=== PATIENT | male | born 1985 | race Two or more races ===

== ENCOUNTER → 2024-07-12 | Outpatient (CLI) | payer BC, SELFPAY ==
[2024-07-12 12:21] LABS: Collection Type, Urine Clean Catch
[2024-07-12 12:47] LABS: Basophils % (Auto) 0 % (0-2.5); Eosinophils # (Auto) 0.1 Thou/mm3 (0.0-0.5); Eosinophils % (Auto) 2 % (0-10); Hemoglobin 19.1 g/dL (13.5-16.0); Immature Granulocytes % (Auto) 0 % (0-0); Immature Granulocytes Auto 0.02 Thou/mm3 (0.00-0.00); Lymphocytes # (Auto) 2.7 Thou/mm3 (1.0-4.8); Lymphocytes % (Auto) 36 % (10-50); Mean Corpuscular HGB Conc 33.5 g/dl (31.0-37.0); Mean Corpuscular Hemoglobin 29.3 pg (25.0-35.0); Mean Corpuscular Volume 88 fL (80-100); Monocytes # (Auto) 0.7 Thou/mm3 (0.0-0.8); Monocytes % (Auto) 9 % (0-12); Neutrophils % (Auto) 53 % (37-80); Nucleated Red Blood Cell % 0 /100 WBC (0); Platelet Count 389 Thou/mm3 (140-440); Red Blood Count 6.51 Miln/mm3 (4.50-5.90); White Blood Count 7.6 Thou/mm3 (3.8-10.6)
[2024-07-12 13:06] LABS: Vitamin D 25 Hydroxy Total 14.2 ng/mL (7.3-40.2)
[2024-07-12 13:08] LABS: Alanine Aminotransferase 106 U/L (10-49); Albumin, Serum 4.9 gm/dL (3.5-5.0); Alkaline Phosphatase 56 U/L (46-116); Anion Gap 6 (7-16); Aspartate Amino Transferase 48 U/L (0-34); BUN/Creatinine Ratio 11 Ratio (12-20); Bilirubin,Total 0.7 mg/dL (0.3-1.2); Blood Urea Nitrogen 11 mg/dL (9-23); Calcium 9.9 mg/dL (8.3-10.6); Calcium (Corrected) 9.9 mg/dL (8.5-10.1); Carbon Dioxide 27.4 mMol/L (20.0-31.0); Cardiac Risk Estimate 9.3 RATIO (4.0-6.7); Chloride 103 mMol/L (98-107); Cholesterol 251 mg/dL (132-200); Globulin 2.5 gm/dL (2.3-3.5); Glucose 86 mg/dL (74-106); HDL Cholesterol 27 mg/dL (40-60); LDL Cholesterol,Calculated 198 mg/dL (0-130); Osmolality,Calculated 270 (275-295); Potassium 4.7 mMol/L (3.4-5.1); Sodium 136 mMol/L (136-145); Thyroid Stimulating Hormone 1.06 uIU/mL (0.55-4.78); Total Protein 7.4 gm/dL (5.7-8.2); Triglycerides 132 mg/dL (30-150); eGFR > 60 See Note
[2024-07-12 13:21] LABS: Bacteria,Urine Rare; Bilirubin,Urine Negative (Negative); Blood,Urine Negative (Negative); Clarity,Urine Clear (Clear/Hazy); Color,Urine Yellow (Lt Yel-Yel); Culture Indicated,Urine Not Indicated; Glucose, Urine Negative (Negative); Ketones,Urine Negative (Negative); Leukocyte Esterase,Urine Negative (Negative); Nitrite,Urine Negative (Negative); Protein,Urine Trace (Neg - Trace); RBC,Urine 5 /hpf (0-3); Specific Gravity,Urine 1.018 (1.001-1.035); Squamous Epithelial Cell,Urine 3 /hpf (0-5); Urobilinogen,Urine Negative mg/dL (0.0-1.0); WBC,Urine 4 /hpf (0-5)
== END | disposition home or self-care (01) ==
LOC: COPL 10:58
PROVIDERS: PCP Family Medicine; Referring Provider Physician Assistant; Visit Provider Physician Assistant
DX: Z00.00 Encounter for general adult medical examination without abnormal findings (principal); E55.9 Vitamin D deficiency, unspecified; E78.5 Hyperlipidemia, unspecified
CPT/HCPCS: 36415; 80053; 80061; 81001; 82306; 84443; 85025

== ENCOUNTER → 2024-10-04 | Outpatient (CLI) | payer BC, SELFPAY ==
[2024-10-04 11:55] LABS: Misc Send Out* See Sep Rpt
[2024-10-04 12:45] LABS: Collection Type, Urine Clean Catch
[2024-10-04 13:21] LABS: Basophils % (Auto) 1 % (0-2.5); Eosinophils # (Auto) 0.2 Thou/mm3 (0.0-0.5); Eosinophils % (Auto) 2 % (0-10); Hematocrit 54.2 % (41.0-53.0); Hemoglobin 18.4 g/dL (13.5-16.0); Immature Granulocytes % (Auto) 0 % (0-0); Immature Granulocytes Auto 0.02 Thou/mm3 (0.00-0.00); Lymphocytes # (Auto) 2.6 Thou/mm3 (1.0-4.8); Lymphocytes % (Auto) 37 % (10-50); Mean Corpuscular HGB Conc 33.9 g/dl (31.0-37.0); Mean Corpuscular Hemoglobin 29.3 pg (25.0-35.0); Mean Corpuscular Volume 86 fL (80-100); Monocytes # (Auto) 0.7 Thou/mm3 (0.0-0.8); Monocytes % (Auto) 9 % (0-12); Neutrophils # (Auto) 3.5 Thou/mm3 (1.8-7.7); Neutrophils % (Auto) 51 % (37-80); Nucleated Red Blood Cell % 0 /100 WBC (0); Platelet Count 380 Thou/mm3 (140-440); RDW Standard Deviation 45.5 fL (35.1-43.9); Red Blood Count 6.27 Miln/mm3 (4.50-5.90)
[2024-10-04 13:26] LABS: INR 1.1 (0.9-1.3); Prothrombin Time 12.4 Seconds (9.0-12.2)
[2024-10-04 13:29] LABS: Alanine Aminotransferase 74 U/L (10-49); Albumin, Serum 4.9 gm/dL (3.5-5.0); Alkaline Phosphatase 51 U/L (46-116); Anion Gap 8 (7-16); Aspartate Amino Transferase 38 U/L (0-34); BUN/Creatinine Ratio 11 Ratio (12-20); Bilirubin,Direct 0.4 mg/dL (0.0-0.3); Blood Urea Nitrogen 10 mg/dL (9-23); Calcium 9.1 mg/dL (8.3-10.6); Calcium (Corrected) 9.1 mg/dL (8.5-10.1); Carbon Dioxide 27.4 mMol/L (20.0-31.0); Chloride 100 mMol/L (98-107); Creatinine (Component) 0.9 mg/dL (0.6-1.3); Globulin 2.5 gm/dL (2.3-3.5); Glucose 80 mg/dL (74-106); Osmolality,Calculated 268 (275-295); Potassium 4.3 mMol/L (3.4-5.1); Sodium 135 mMol/L (136-145); Total Protein 7.4 gm/dL (5.7-8.2); eGFR > 60 See Note
[2024-10-04 13:33] LABS: Amorphous Crystals,Urine Present (Absent); Bilirubin,Urine Negative (Negative); Blood,Urine Negative (Negative); Clarity,Urine Clear (Clear/Hazy); Color,Urine Yellow (Lt Yel-Yel); Culture Indicated,Urine Not Indicated; Glucose, Urine Negative (Negative); Ketones,Urine Negative (Negative); Leukocyte Esterase,Urine Negative (Negative); Nitrite,Urine Negative (Negative); Protein,Urine Negative (Neg - Trace); RBC,Urine 6 /hpf (0-3); Specific Gravity,Urine 1.015 (1.001-1.035); Squamous Epithelial Cell,Urine 2 /hpf (0-5); WBC,Urine 1 /hpf (0-5)
[2024-10-04 14:00] LABS: Ferritin 429 ng/mL (10.5-307.3); Total Iron Binding Capacity 451 mcg/dL (250-425)
[2024-10-04 14:11] LABS: Iron 156 mcg/dL (65-175); Percent Iron Saturation 34 % (20-55); Unsaturated Iron Binding 295 (225-295)
[2024-10-04 14:16] LABS: Hepatitis A Antibody IgM Non Reactive (Non React); Hepatitis B Core Antibody IgM Non Reactive (Non React); Hepatitis B Surface Antigen Non Reactive (Non React); Hepatitis C Antibody Non Reactive (Non React)
[2024-10-04 14:47] LABS: RA Screen Negative (Negative)
[2024-10-10 06:36] LABS: ACTH, Plasma* 57 pg/mL (6-50)
[2024-10-13 22:03] LABS: Sjogren's antibody (SS-A) <1.0 NEG AI (<1.0 NEGATIVE); Sm Antibody <1.0 NEG AI (<1.0 NEGATIVE)
[2024-10-14 06:35] LABS: ANA Screen, IFA NEGATIVE (NEGATIVE); Alpha-1-Antitrypsin* 167 mg/dL (83-199); Sjogren's Antibody (SS-B) <1.0 NEG AI (<1.0 NEGATIVE)
[2024-10-14 06:36] LABS: Actin Antibody (IgG)* <20 U; Ceruloplasmin* 18 mg/dL (14-30); Complement Component C3* 117 mg/dL (82-185); Complement Component C4c* 38 mg/dL (15-53); Copper* 84 mcg/dL (70-175); DNA (ds) Antibody* 1 IU/mL; Gastric Parietal Cell Ab* <20.0 U; Mitochondrial Ab NEGATIVE (NEGATIVE); Myocardial Ab, IF NEGATIVE (NEGATIVE); Scl-70 Antibody* <1.0 NEG AI (<1.0 NEGATIVE); Sm/RNP Antibody <1.0 NEG AI (<1.0 NEGATIVE); Striated Muscle Ab NEGATIVE (NEGATIVE); Thyroid Peroxidase Antibodies* <1 IU/mL (<9)
== END | disposition home or self-care (01) ==
LOC: COPL 11:14
PROVIDERS: PCP Physician Assistant; Referring Provider Specialist; Visit Provider Specialist
DX: R94.5 Abnormal results of liver function studies (principal); E78.5 Hyperlipidemia, unspecified; D58.2 Other hemoglobinopathies; R31.9 Hematuria, unspecified; R76.0 Raised antibody titer
CPT/HCPCS: 36415; 80053; 80074; 80076; 81001; 82024; 82103; 82105; 82390; 82525; 82728; 83516; 83540; 83550; 85025; 85610; 86015; 86038; 86160; 86225; 86231; 86235; 86255; 86376; 86430

== ENCOUNTER 2024-11-22 09:59 | Outpatient (RCR) | payer BC, SELFPAY ==
--- NOTE | 2024-11-22 23:33 | CTCCONSULT_ITS ---
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 Denies any cough chest pain abdominal pain headaches. Patient consumes alcohol on the weekend about 6-7 drinks at a time. Denies any use of testosterone supplement do not smoke snores at times. No family or personal history of cancer OTHER MEDICAL HISTORY/CONDITIONS: [place] CHILD ALLERGIC RHINITIS HIGH CHOLESTEROL DENIES FAMILY HISTORY: Father:?DENIES Mother:?DENIES Sibling:?DENIES Children:?DENIES Cancer?History:?DENIES Patient?denies?family?cancer?history. SOCIAL HISTORY: Occupational?History:?[employer] Education?Level:?Vocational School Graduate Marital?Status:?Single Tobacco?Use:?DENIES ETOH?Use:?SOCIAL?BEER?AND?LIQUOR Drug?Note:?DENIES Social?History?Note:?LIVES?ALONE MEDICATIONS: 1. No medications reported by patient -?[facility] Meds? Medications Last Reconciled by Ria Meade RN on 11/22/2024 ALLERGIES: No Known Drug Allergies REVIEW OF SYSTEMS: A complete 14-point review of systems was performed and is negative except as noted in interval history. PHYSICAL EXAMINATION: VITAL SIGNS: Temperature?98.7, B/P?151/87, Height?74?inches, Oxygen?Saturation?98% Weight?305?lbs PAIN: 0 - No pain ECOG Performance Status: 0 - Asymptomatic and fully active GENERAL APPEARANCE: Appears well, in no apparent distress, appropriately interactive. HEENT: Normocephalic, no temporal wasting, normal conjunctiva, no scleral icterus, normal hearing, lips without lesions, neck normal range of motion. CARDIOVASCULAR: Not assessed. PULMONARY: Normal respiratory effort, no respiratory distress or use of accessory muscles, speaking in full sentences, no tachypnea. EXTREMITIES: No pedal edema or cyanosis. SKIN: Normal skin appearance. NEUROLOGIC: Alert and oriented x4. PSHYCHIATRIC: Appropriate affect, mood normal, behavior normal, intact thought and speech. LABORATORY DATA: I have personally reviewed and interpreted each of the patient?s relevant lab tests, abnormal findings are below: Date 07/12/24 10/04/24 ??WHITE?BLOOD?COUNT?(Thou/mm3) ? 7.0 ??RED?BLOOD?COUNT?(Miln/mm3) ? 6.27?H ??HEMOGLOBIN?(gm/dl) ? 18.4?HH ??HEMATOCRIT?(%) ? 54.2?H ??PLATELET?COUNT?(Thou/mm3) ? 380 ??NEUTROPHILS?%,?AUTO?(%) ? 51 ??LYMPH?%,?AUTO?(%) ? 37 ??NEUTROPHILS,?AUTO?(Thou/mm3) ? 3.5 ??GLUCOSE,RANDOM?(mg/dL) 86 80 ??BLOOD?UREA?NITROGEN?(mg/dL) 11 10 ??CREATININE?(mg/dL) 1.00 0.90 ??SODIUM?(mmol/L) 136 135?L ??POTASSIUM?(mmol/L) 4.7 4.3 ??CHLORIDE?(mmol/L) 103 100 ??CrCl?(CandG)?(ml/min) 148.55 163.41 ??AST/SGOT?(Unit/L) 48?H 38?H ??ALT/SGPT?(Unit/L) 106?H 74?H ??ALKALINE?PHOSPHATASE?(Unit/L) 56 51 ??BILIRUBIN,?TOTAL?(mg/dL) 0.7 1.0 ??PROTEIN?TOTAL?(gm/dl) 7.4 7.4 ??ALBUMIN,?SERUM?(gm/dl) 4.9 4.9 ??GLOBULIN?(gm/dl) 2.5 2.5 ??ALBUMIN/GLOBULIN?RATIO 2.0 2.0 ??CALCIUM,?SERUM?(mg/dL) 9.9 9.1 ??CALCIUM?SERUM?(CORRECTED)?(mg/dL) 9.9 9.1 ??TOTAL?IRON?BINDING?CAP?(S*)?(mcg/dL) ? 451?H ??UNBOUND?IBC?(mcg/dL) ? 295 ASSESSMENT/PLAN: Erythrocytosis Will check for JAK2 mutation erythropoietin level testosterone level flow cytometry for MPN Start phlebotomy to keep hematocrit below 45 Sleep studies Hepatitis panel AFP level CT scan to evaluate spleen and liver ORDERS: Order # Description [id number] Comprehensive Metabolic Panel - 12 + CBC with Auto Diff [id number] AFP [id number] Hep A, B and C panel [id number] CT Scan + Abdomen + With Contrast [id number] Phlebotomy Appt [id number] Therapeutic Phlebotomy, 1 Unit [id number] LIDIA - 2 Mutation Quant + Erythropoieten Level + Testosterone; Total + Flowcytometry RETURN TO CLINIC: I will see him back in the clinic in 2 months. With the labs and imaging BILLING AND COMPLIANCE: I reviewed external records from providers outside my specialty as summarized above. I spent a total of 50 minutes on this patient?s care on the day of their visit excluding time spent related to any billed procedures. This time includes time spent with the patient as well as time spent documenting in the medical record, reviewing patients records and tests, obtaining history, placing orders, communicating with other healthcare professionals, counseling the patient, family or caregiver, and/or care coordination for the diagnoses above. Electronically Signed by: Levi Hendricks MD T: 11:30 PM CC: PCP: Christie France Referring: Christie France This document was completed utilizing speech recognition software. Grammatical errors, random word insertions, pronoun errors, and incomplete sentences are an occasional consequence of this system due to software limitations, ambient noise, and hardware issues. Any formal questions or concerns about the content, text or information contained within the body of this dictation should be directly addressed to the provider for clarification.
== END 2024-12-05 23:59 | disposition home or self-care (01) ==
LOC: SCTC 09:59
PROVIDERS: PCP Physician Assistant; Referring Provider Physician Assistant; Visit Provider Internal Medicine Hematology & Oncology
DX: D75.1 Secondary polycythemia (principal)
CPT/HCPCS: 99213; G0463